=== PATIENT | female | born 1965 | race Two or more races ===

== ENCOUNTER 2020-06-26 19:12 | Emergency (ER) | payer OTHER ==
[~2020-06-26] VITALS: Ht 157.5 cm; Wt 65.3 kg
[2020-06-26] MEDS ORDERED: TOPROL XL50 M1 PO (19:25)
[2020-06-26] MEDS ORDERED: LOSARTAN POTASS25 MG PO (19:25)
[2020-06-26] MEDS ORDERED: COZAAR50 MG PO (19:25)
[2020-06-26] MEDS ORDERED: CRESTOR20 MG PO (19:25)
[2020-06-27] MEDS ORDERED: TAMS0.4C PO (07:15)
[2020-06-27] MEDS ORDERED: CIPRO500 MG PO (07:15)
== END 2020-06-27 07:29 | disposition home or self-care (01) ==
LOC: ER 19:12
DX: N20.1 Calculus of ureter (principal); R10.32 Left lower quadrant pain; R11.0 Nausea